=== PATIENT | male | born 1980 | race Caucasian/White ===

== ENCOUNTER 2019-10-26 18:00 | Emergency (ER) | payer OTHER, SELFPAY ==
--- NOTE | ~2019-10-26 | XR_ITS ---
EXAMINATION: XR knee LT 3V DATE: 10/26/2019 19:03 INDICATION: Left knee pain. TECHNIQUE: 3 views of left knee were obtained. COMPARISON: None. FINDINGS: Bone alignment is normal. No fracture. Joint spaces are well maintained. There is no knee j oint effusion. IMPRESSION: 1. Normal left knee. Reviewed, dictated and finalized at location A. IMPRESSION: 1. Normal left knee.
[2019-10-26 18:42] VITALS: BP 145/84; PULSE 80; RESP 18; TEMP 36.7; O2SAT 100
[2019-10-26 21:00] VITALS: BP 138/72; PULSE 82; RESP 16; TEMP 36.5; O2SAT 99
--- NOTE | 2019-10-26 21:14 | ED.EXTPRO ---
HPI - Extremity Problem General Chief complaint: Extremity Problem,Nontraumatic Stated complaint: L KNEE PAIN X3D Time Seen by Provider: 10/26/19 20:03 Source: patient Mode of arrival: ambulatory Limitations: no limitations History of Present Illness HPI Narrative: Patient presents with chief complaint of progressively worsening left knee pain that improves with standing without bearing weight on the left lower knee. Patient denies any direct trauma, any or any other known mechanisms of injury. Patient states that his diclofenac and cyclobenzaprine which she takes for his back has not helped his knee. Patient states that he does have a primary care but has not yet seen him for his knee pain. There is no abrasions or swelling or erythema to the knee. He denies any chronic issues in the past of the knee. There is no swelling or pain in the calf or thigh. Related Data Home Medications Medication Instructions Recorded Confirmed cyclobenzaprine mg 10/26/19 dextroamphetamine-amphetamine BID 10/26/19 diclofenac sodium PO 10/26/19 famotidine 10/26/19 tamsulosin mg PO 10/26/19 Allergies Allergy/AdvReac Type Severity Reaction Status Date / Time No Known Allergies Allergy Verified 10/26/19 20:42 Review of Systems Review of Systems: Narrative: CONSTITUTIONAL: Denies fever, chills, or sweats. EYES: Denies visual changes, redness, or discharge. ENT: Denies rhinorrhea, congestion, sore throat, or otalgia. CARDIOVASCULAR: Denies chest pain, palpitations, or edema. RESPIRATORY: Denies cough or dyspnea. GASTROINTESTINAL: Denies abdominal pain, nausea, vomiting, or diarrhea. GENITOURINARY: Denies dysuria or hematuria. SKIN: Denies rash or itching. MUSCULOSKELETAL: Reports left knee pain denies back pain or myalgia. NEUROLOGIC: Denies headache, numbness, dizziness, or weakness. PSYCHIATRIC: Denies anxiety or depression. PMFSH Social History Social History Gender identity (if verbalized by the patient): Male Exam Narrative: Exam Narrative: GENERAL: Well-appearing, well-nourished, and in no acute distress. HEAD: Normocephalic, atraumatic. EYES: PERRLA and EOMI. NECK: Supple. No adenopathy or masses. No carotid bruits or JVD CHEST: Clear to auscultation. No respiratory distress. No wheezes rales or rhonchi HEART: Regular rate and rhythm. EXTREMITIES: Flexion limited due to pain. No edema, erythema, ecchymosis or appreciated swelling. No pain with palpation of anterior posterior aspect of the knee. No swelling pain or abnormality proximally or distally to the left knee. No appreciated deformity. SKIN: Warm, dry, no rash. NEURO: No focal deficits. Alert and oriented x3. PSYCH: Normal mood and affect. Course Vital Signs Vital signs: Vital Signs Temperature 98.1 F 10/26/19 18:42 Pulse Rate 80 10/26/19 18:42 Respiratory Rate 18 10/26/19 18:42 Blood Pressure 145/84 H 10/26/19 18:42 Pulse Oximetry 100 10/26/19 18:42 Temperature 97.7 F 10/26/19 21:00 Pulse Rate 82 10/26/19 21:00 Respiratory Rate 16 10/26/19 21:00 Blood Pressure 138/72 10/26/19 21:00 Pulse Oximetry 99 10/26/19 21:00 MDM - Extremity (Nontraumatic) MDM Narrative Medical decision making narrative: There are no acute signs of injury such as swelling, abrasions, ecchymosis, erythema. Discussed with patient that he may have tendon or ligamentous injury/inflammation. Discussed with patient that he may need to follow-up with his primary care application security specialist for further evaluation and possible MRI for further investigation into his symptoms. Since patient already try anti-inflammatories and muscle relaxers patient will receive 1 Toradol injection in emergency department and will trial a steroid burst to see if it would decrease internal inflammation/pain. Patient verbalized understanding agreement and intent to follow-up for further evaluation. Differential Diagnosis Differential diagnosis: Likely other (Fracture,
[2019-10-26] MEDS: KETOROLAC (*BKC) 60 MG/2 ML VIAL 30 MG IM (21:38)
[2019-10-26 21:47] VITALS: BP 133/99; PULSE 63; RESP 18; TEMP 36.7; O2SAT 99
== END 2019-10-26 21:52 | disposition home or self-care (01) ==
PROVIDERS: Emergency Provider Emergency Medicine
DX: M25.562 Pain in left knee (principal)
CPT/HCPCS: 73562; 96372; 99283; J1885

== ENCOUNTER 2023-02-18 06:17 | Emergency (ER) | payer OTHER, SELFPAY ==
--- NOTE | ~2023-02-18 | XR_ITS ---
Left wrist Technique: PA, oblique, lateral, and ulnar deviation views were obtained. Clinical History: Pain, dog bite Findings: No acute fracture or dislocation is seen. Osseous alignment is anatomic. Joint spaces are p reserved. Soft tissues are unremarkable. Impression: Unremarkable left wrist radiographs. Reviewed, dictated and finalized at location . PLANNER Impression: Unremarkable left wrist radiographs.
[2023-02-18 06:22] VITALS: BP 133/95; PULSE 69; RESP 16; TEMP 36.1; O2SAT 100
--- NOTE | 2023-02-18 07:00 | PC.NURSE ---
Appears to have two puncture sites noted to L wrist. Pt states that it was from his own dog who chewed through his muzzle and then bit him. They have been trying to train dog to not bite. Pt states dog shots UTD, but pts tetanus is not. Bleeding controlled at this time.
--- NOTE | 2023-02-18 07:06 | PC.NURSE ---
Report to CUBA Sanchez.
--- NOTE | 2023-02-18 07:16 | ED.ANIMALBIT ---
HPI - Animal Bite General Chief Complaint: Animal Bite Stated Complaint: dog bite Time Seen by Provider: 02/18/23 07:13 Source: patient Mode of arrival: ambulatory History of Present Illness HPI narrative: Dog bite to right wrist, patient's dog, fully immunized, patient was trying to place the dog muzzle, got beaten to the right wrist. No other injuries, unknown last tetanus shot Related Data Home Medications Medication Instructions Recorded Confirmed cyclobenzaprine 10 mg tablet mg 10/26/19 dextroamphetamine-amphetamine 10 BID 10/26/19 mg tablet diclofenac sodium 75 mg PO 10/26/19 tablet,delayed release famotidine 40 mg tablet 10/26/19 tamsulosin 0.4 mg capsule mg PO 10/26/19 Allergies Allergy/AdvReac Type Severity Reaction Status Date / Time No Known Allergies Allergy Verified 02/18/23 06:24 Review of Systems Review of Systems: All systems reviewed & are unremarkable except as noted in HPI and below PMFSH Social History Social History Gender identity (if verbalized by the patient): Male Exam Narrative: General appearance: Well-developed, well-nourished Skin: Normal color Head: Normocephalic, nontraumatic Eyes: Clear conjunctiva Neck: Supple, nontender Chest and respiratory: Airway patent, no respiratory distress, no accessory muscle use Heart: Regular rate/rhythm Vascular: Normal peripheral pulses, normal capillary refill. Musculoskeletal: Normal range of motion, nontender back right wrist exam showed a puncture wound anterior laterally, no active bleeding. Course Vital Signs Vital signs: Vital Signs Temperature 36.1 C L 02/18/23 06:22 Pulse Rate 69 02/18/23 06:22 Respiratory Rate 16 02/18/23 06:22 Blood Pressure 133/95 H 02/18/23 06:22 Pulse Oximetry 100 02/18/23 06:22 Oxygen Delivery Room Air 02/18/23 06:22 Temperature 36.1 C L 02/18/23 06:22 Pulse Rate 69 02/18/23 06:22 Respiratory Rate 16 02/18/23 06:22 Blood Pressure 133/95 H 02/18/23 06:22 Pulse Oximetry 100 02/18/23 06:22 Oxygen Delivery Room Air 02/18/23 06:22 MDM - Animal Bite MDM Narrative Medical decision making narrative: Patient presents with dog bite right wrist, X-ray showed no osseous abnormalities, Patient received a tetanus shot, ibuprofen prior to discharge. Discharged on Augmentin. Differential Diagnosis Differential diagnosis: Likely dog bite Imaging Data Radiologist's impression: Impressions Wrist X-Ray 02/18/23 07:55 Impression: Unremarkable left wrist radiographs. Critical Care Time Critical Care Time Critical Care Time: No Discharge Plan Discharge Clinical Impression: Dog bite Patient Disposition: Home, Self-Care Condition: Stable Instructions: Antibiotic Form, Animal Bite (ED) Additional Instructions: Return if symptoms are worsening , call your family physician for appointment, take Tylenol as as needed for aches and pain, continue home medications. Wash the puncture wound with warm water and soap, do not cover the puncture wound Prescriptions: New amoxicillin-pot clavulanate [Augmentin] 500-125 mg tablet 1 tablet PO Q8H Qty: 21 0RF No Action cyclobenzaprine 10 mg tablet famotidine 40 mg tablet dextroamphetamine-amphetamine 10 mg tablet BID tamsulosin 0.4 mg capsule PO diclofenac sodium 75 mg tablet,delayed release (DR/EC) PO methylprednisolone [Medrol (Edi)] 4 mg tablets,dose pack See Rx Instructions .ROUTE .COMPLEX Qty: 21 0RF Rx Instructions: orally per package directions Follow-up/Referrals: PHYSICIAN NOT ON STAFF,NONSTAFF [Primary Care Provider] - Raheem Nichole MD [Physician] - 02/21/23 Stand Alone Forms:
[2023-02-18] MEDS: IBUPROFEN 600 MG TABLET PO (07:28)
[2023-02-18] MEDS: TETANUS,DIPHTHERIA,AC PERTUSSIS ADULT (0.5 ML) BOOSTRIX IM (07:29)
== END 2023-02-18 09:05 | disposition home or self-care (01) ==
PROVIDERS: Emergency Provider Emergency Medicine
DX: S61.551A Open bite of right wrist, initial encounter (principal); W54.0XXA Bitten by dog, initial encounter; Z23 Encounter for immunization
CPT/HCPCS: 73110; 90471; 90715; 99283; A9270